=== PATIENT | female | born 1945 | race Asian ===

== ENCOUNTER 2019-08-25 00:45 | Emergency (ER) | payer MEDICARE ==
[~2019-08-25] VITALS: Ht 147.3 cm; Wt 54.5 kg
[2019-08-25] MEDS ORDERED: LEVO500 PO (00:58)
[2019-08-25] MEDS ORDERED: ATOR20TA86 PO (00:58)
[2019-08-25] MEDS ORDERED: CLON0.1T2 PO (00:58)
[2019-08-25] MEDS ORDERED: AMLO-96 PO (00:58)
[2019-08-25] MEDS ORDERED: ERGO500014 PO (00:58)
[2019-08-25] MEDS ORDERED: FEXO-58 PO (00:58)
[2019-08-25 01:38] VITALS: BP 152/76
== END 2019-08-25 01:51 | disposition home or self-care (01) ==
LOC: EMS 00:45
DX: I10 Essential (primary) hypertension (principal); R11.2 Nausea with vomiting, unspecified; F41.9 Anxiety disorder, unspecified; E78.00 Pure hypercholesterolemia, unspecified; Z88.1 Allergy status to other antibiotic agents; Z88.0 Allergy status to penicillin; Z88.8 Allergy status to other drugs, medicaments and biological substances